=== PATIENT | male | born 1935 | race Two or more races ===

== ENCOUNTER 2016-11-20 07:48 | Inpatient (IN) | payer OTHER, MEDICAID ==
[~2016-11-20] VITALS: Ht 157.5 cm; Wt 73.2 kg
[~2016-11-20 07:48] MED LIST: ASPI-231 PO; CANA100T OR; CARV6.2551 PO; DOCU1CAP PO; FER325T PO; FURO40TA4 PO; GABA300C8 PO; INSR100KIT SC; INSUINJ37 SUBCUT; LOVA40TA72 PO; SITA50TA PO
[2016-11-20 08:30] LABS: Basophils # (auto) 0.1 uL; Basophils % (auto) 0.5 % (0.0-2.0); Eosinophils # (auto) 0.3 uL; Eosinophils % (auto) 2.3 % (0.0-7.0); Hematocrit 29.7 % (41.0-53.0); Hemoglobin 9.6 g/dL (13.5-17.5); Lymphocytes # (auto) 3.5 uL; Mean Corpuscular Hemoglobin 30.2 pg (28.0-32.0); Mean Corpuscular Hgb Conc. 32.2 g/dL (32.0-36.0); Mean Corpuscular Volume 93.8 fL (80.0-100.0); Mean Platelet Volume 9.1 fL (7.4-10.4); Monocytes # (auto) 0.7 uL; Monocytes % (auto) 6.2 % (0.0-12.0); Platelet Count (auto) 221 10^3/uL (140-450); Red Cell Distribution Width 15.8 % (11.6-16.0); White Blood Cell 11.5 10^3/uL (4.4-10.8)
[2016-11-20 08:59] LABS: Albumin 2.8 g/dL (3.4-5.0); BUN/Creatinine Ratio 18.1; Bilirubin, Total 0.6 mg/dL (0.2-1.0); Calcium 8.1 mg/dL (8.5-10.1); Potassium 5.1 mmol/L (3.5-5.1); Total Protein 6.6 g/dL (6.4-8.2)
[2016-11-20] MEDS ORDERED: PANTOPRAZOLE SODIUM 40 MG/10 ML VIAL IV STA (09:27)
[2016-11-20] MEDS ORDERED: SODIUM CHLORIDE 0.9% 1,000 ML IV ONE (09:30)
[2016-11-20 10:01] LABS: B-Type Natriuretic Peptide 1060.97 pg/mL (0-100)
[2016-11-20 10:39] LABS: Partial Thromboplastin Time 26.4 sec (22.64-33.71)
[2016-11-20 10:41] LABS: INR 1.23 (0.9-1.15); Prothrombin Time 12.7 sec (9.37-12.3)
[2016-11-20] MEDS ORDERED: MORPHINE SULF INJ 2 MG/ML SYRINGE 1ML IV PRN (12:15)
[2016-11-20] MEDS ORDERED: NITROGLYCERIN 0.4 MG SL TAB SL PRN (12:15)
[2016-11-20] MEDS ORDERED: PHYTONADIONE (VIT K)10 MG/ML 1ML VIAL SUBCUT ONE (12:15)
[2016-11-20] MEDS ORDERED: PROMETHAZINE HCL 25 MG/ML 1ML IV PRN (12:15)
[2016-11-20] MEDS: NOREPINEPHRINE BITARTRATE 250 ML IV SCH (12:15)
[2016-11-20] MEDS ORDERED: LORazepam 2MG/ML-1ML VIAL IV PRN (12:15)
[2016-11-20] MEDS ORDERED: DEXTROSE (50%) 50ML SYRG IV PRN (12:15)
[2016-11-20 12:31] LABS: Amylase 31 U/L (25-115)
[2016-11-20] MEDS: LEVOFLOXACIN 500MG 100 ML IV SCH (15:13)
[2016-11-20] MEDS: metroNIDAZOLE 500MG/100ML 100 ML IV SCH ×2 (15:59→22:21)
[2016-11-20] MEDS: SODIUM CHLORIDE 0.9% 1,000 ML IV SCH ×2 (15:59→19:38)
[2016-11-20] MEDS: ACCU-CHEK COMFORT CURVE STRIP VI SCH (18:18)
[2016-11-20] MEDS: InsuLIN REG 1unit/0.01ml Soln (100units/ml) SC SCH (18:21)
[2016-11-20 18:35] LABS: Hematocrit 24.3 % (41.0-53.0); Hemoglobin 7.8 g/dL (13.5-17.5)
[2016-11-20] MEDS: PANTOPRAZOLE SODIUM 80 MG in SODIUM CHL 0.9% 60 ML IV SCH (19:06)
[2016-11-20 21:20] VITALS: BP 97/59
[2016-11-20 21:35] VITALS: BP 94/55
[2016-11-20 21:50] VITALS: BP 119/58
[2016-11-20 22:32] VITALS: BP 95/36
[2016-11-20 23:13] VITALS: BP 109/66
[2016-11-21] VITALS (11 sets, daily range): BP systolic 92–126; BP diastolic 68–78
[2016-11-21] MEDS: ACCU-CHEK COMFORT CURVE STRIP VI SCH ×5 (00:02→23:57)
[2016-11-21] MEDS: InsuLIN REG 1unit/0.01ml Soln (100units/ml) SC SCH ×5 (00:09→23:56)
[2016-11-21 01:01] LABS: Hematocrit 30.8 % (41.0-53.0); Hemoglobin 9.8 g/dL (13.5-17.5)
[2016-11-21] MEDS: PANTOPRAZOLE SODIUM 80 MG in SODIUM CHL 0.9% 60 ML IV SCH (03:45)
[2016-11-21] MEDS: SODIUM CHLORIDE 0.9% 1,000 ML IV SCH (04:29)
[2016-11-21] MEDS: metroNIDAZOLE 500MG/100ML 100 ML IV SCH ×3 (05:04→20:58)
[2016-11-21 05:32] LABS: Basophils # (auto) 0 uL; Basophils % (auto) 0.3 % (0.0-2.0); Eosinophils # (auto) 0 uL; Hemoglobin 10.4 g/dL (13.5-17.5); Lymphocytes % (auto) 17.5 % (10.0-50.0); Mean Corpuscular Hgb Conc. 31.6 g/dL (32.0-36.0); Mean Corpuscular Volume 91.8 fL (80.0-100.0); Mean Platelet Volume 9.2 fL (7.4-10.4); Monocytes # (auto) 0.8 uL; Monocytes % (auto) 6.9 % (0.0-12.0); Neutrophils # (auto) 8.5 uL; Neutrophils % (auto) 75.3 % (37.0-80.0); Platelet Count (auto) 188 10^3/uL (140-450); Red Cell Distribution Width 15.1 % (11.6-16.0); White Blood Cell 11.3 10^3/uL (4.4-10.8)
[2016-11-21 06:02] LABS: Albumin 2.9 g/dL (3.4-5.0); BUN/Creatinine Ratio 28.4; Bilirubin, Total 0.6 mg/dL (0.2-1.0); Calcium 7.9 mg/dL (8.5-10.1); Potassium 4.6 mmol/L (3.5-5.1); Total Protein 6.6 g/dL (6.4-8.2)
[2016-11-21 06:21] LABS: B-Type Natriuretic Peptide 1373.65 pg/mL (0-100); Temperature: 22.3 C (20.0-25.0)
[2016-11-21] MEDS: MORPHINE SULF INJ 2 MG/ML SYRINGE 1ML IV PRN (06:36)
[2016-11-21] MEDS: LEVOFLOXACIN 500MG 100 ML IV SCH (09:34)
[2016-11-21] MEDS ORDERED: PANTOPRAZOLE SODIUM 40 MG/10 ML VIAL IV SCH (10:00)
[2016-11-21] MEDS: NOREPINEPHRINE BITARTRATE 250 ML IV SCH (12:15)
[2016-11-21] MEDS ORDERED: LIDOCAINE VISCOUS 2% 15ML UD ONE (12:27)
[2016-11-21] MEDS ORDERED: SODIUM CHLORIDE LOCK 10 ML ONE (12:27)
[2016-11-21] MEDS ORDERED: fentaNYL CITRATE 100 MCG/2 ML VL ONE (12:28)
[2016-11-21] MEDS ORDERED: MIDAZOLAM HCL 5 MG/ML-1ML VIAL ONE (12:28)
[2016-11-21] MEDS ORDERED: diphenhdrAMINE HCL 50 MG/1 ML VL ONE (12:28)
[2016-11-21 12:55] LABS: Urine Bilirubin Negative (Negative); Urine Blood Negative /uL (Negative); Urine Color Yellow (Yellow); Urine Glucose Normal (Normal); Urine Hyaline Cast MANY /lpf (0 - 2); Urine Nitrite Negative (Negative); Urine RBC <1 /hpf (0 - 3); Urine Urobilinogen Normal (Negative)
[2016-11-21 12:56] LABS: Urine Ketone 1+ (Negative)
[2016-11-21] MEDS: FUROSEMIDE 40 MG/4 ML VIAL IV SCH (16:19)
[2016-11-21] MEDS: SUCRALFATE 1 GM/10 ML ORAL SUSP GT SCH ×2 (17:40→20:58)
[2016-11-21] MEDS: PANTOPRAZOLE SODIUM 40 MG/10 ML VIAL IV SCH (21:04)
[2016-11-22 03:51] VITALS: BP 123/79
[2016-11-22] MEDS: InsuLIN REG 1unit/0.01ml Soln (100units/ml) SC SCH ×3 (06:00→17:58)
[2016-11-22 06:04] LABS: Basophils # (auto) 0 uL; Basophils % (auto) 0.3 % (0.0-2.0); Eosinophils # (auto) 0 uL; Hematocrit 32.4 % (41.0-53.0); Hemoglobin 10.1 g/dL (13.5-17.5); Lymphocytes # (auto) 1.7 uL; Lymphocytes % (auto) 16.6 % (10.0-50.0); Mean Corpuscular Hemoglobin 29.2 pg (28.0-32.0); Mean Corpuscular Hgb Conc. 31.1 g/dL (32.0-36.0); Mean Corpuscular Volume 93.7 fL (80.0-100.0); Mean Platelet Volume 9.6 fL (7.4-10.4); Monocytes % (auto) 9.9 % (0.0-12.0); Neutrophils # (auto) 7.5 uL; Neutrophils % (auto) 73.2 % (37.0-80.0); Platelet Count (auto) 169 10^3/uL (140-450); Red Cell Distribution Width 15.5 % (11.6-16.0); White Blood Cell 10.2 10^3/uL (4.4-10.8)
[2016-11-22 06:55] LABS: BUN/Creatinine Ratio 29.2; Calcium 8.1 mg/dL (8.5-10.1); Magnesium 2.3 mg/dL (1.6-2.6); Potassium 4.3 mmol/L (3.5-5.1)
[2016-11-22] MEDS: ACCU-CHEK COMFORT CURVE STRIP VI SCH ×3 (06:56→17:50)
[2016-11-22] MEDS: metroNIDAZOLE 500MG/100ML 100 ML IV SCH ×3 (06:56→21:21)
[2016-11-22] MEDS: SUCRALFATE 1 GM/10 ML ORAL SUSP GT SCH ×4 (06:56→21:21)
[2016-11-22] MEDS: MORPHINE SULF INJ 2 MG/ML SYRINGE 1ML IV PRN (07:21)
[2016-11-22 07:57] VITALS: BP 138/88
[2016-11-22] MEDS: FUROSEMIDE 40 MG/4 ML VIAL IV SCH ×2 (10:11→17:59)
[2016-11-22] MEDS: LEVOFLOXACIN 250MG 50 ML IV SCH (10:11)
[2016-11-22] MEDS: PANTOPRAZOLE SODIUM 40 MG/10 ML VIAL IV SCH ×2 (10:11→21:21)
[2016-11-22 12:00] VITALS: BP 120/70
[2016-11-22] MEDS: ASPirin 81 mg TAB PO SCH (12:00)
[2016-11-22] MEDS: NOREPINEPHRINE BITARTRATE 250 ML IV SCH (12:00)
[2016-11-22 15:54] VITALS: BP 118/73
[2016-11-22 20:00] VITALS: BP 102/70
[2016-11-22] MEDS ORDERED: ATORVASTATIN 20 MG TAB PO SCH (22:00)
[2016-11-23] VITALS: BP 109/69
[2016-11-23] MEDS: MORPHINE SULF INJ 2 MG/ML SYRINGE 1ML IV PRN (02:36)
[2016-11-23 04:00] VITALS: BP 110/71
[2016-11-23] MEDS: InsuLIN REG 1unit/0.01ml Soln (100units/ml) SC SCH ×4 (06:00→18:24)
[2016-11-23 06:02] LABS: Basophils # (auto) 0 uL; Basophils % (auto) 0.3 % (0.0-2.0); Eosinophils # (auto) 0 uL; Eosinophils % (auto) 0.2 % (0.0-7.0); Hematocrit 29.9 % (41.0-53.0); Hemoglobin 9.5 g/dL (13.5-17.5); Lymphocytes # (auto) 2.3 uL; Mean Corpuscular Hemoglobin 29.6 pg (28.0-32.0); Mean Corpuscular Hgb Conc. 31.8 g/dL (32.0-36.0); Mean Corpuscular Volume 93.1 fL (80.0-100.0); Mean Platelet Volume 9.6 fL (7.4-10.4); Monocytes # (auto) 1.1 uL; Monocytes % (auto) 10.7 % (0.0-12.0); Neutrophils # (auto) 6.6 uL; Neutrophils % (auto) 65.8 % (37.0-80.0); Platelet Count (auto) 141 10^3/uL (140-450); Red Cell Distribution Width 15.4 % (11.6-16.0)
[2016-11-23] MEDS: metroNIDAZOLE 500MG/100ML 100 ML IV SCH ×2 (06:05→14:00)
[2016-11-23] MEDS: ACCU-CHEK COMFORT CURVE STRIP VI SCH ×4 (06:07→17:49)
[2016-11-23] MEDS: FUROSEMIDE 40 MG/4 ML VIAL IV SCH ×2 (06:07→18:00)
[2016-11-23] MEDS: SUCRALFATE 1 GM/10 ML ORAL SUSP GT SCH ×3 (06:08→17:49)
[2016-11-23 06:38] LABS: BUN/Creatinine Ratio 31.6; Magnesium 2.1 mg/dL (1.6-2.6); Phosphorus 1.5 mg/dL (2.5-4.90); Potassium 3.4 mmol/L (3.5-5.1)
[2016-11-23 08:00] VITALS: BP 137/78
[2016-11-23] MEDS ORDERED: ASPirin 81 mg TAB PO SCH (10:00)
[2016-11-23] MEDS: PANTOPRAZOLE SODIUM 40 MG/10 ML VIAL IV SCH (10:16)
[2016-11-23] MEDS: LEVOFLOXACIN 250MG 50 ML IV SCH (10:16)
[2016-11-23] MEDS: ASPirin 81 mg TAB PO SCH (10:16)
[2016-11-23 11:51] VITALS: BP 120/73
[2016-11-23] MEDS ORDERED: CARVEDILOL 3.125 MG TAB PO ONE (12:45)
[2016-11-23] MEDS: NEUTRA-PHOS TABLET PO SCH ×2 (15:51→17:49)
[2016-11-23 16:00] VITALS: BP 111/59
[2016-11-23] MEDS ORDERED: IOHEXOL 350 MG/ML 100ML IJ ONE ×2 (16:52→17:15)
[2016-11-23 18:51] VITALS: BP 111/59
[2016-11-23] MEDS ORDERED: CARVEDILOL 3.125 MG TAB PO SCH (22:00)
== END 2016-11-23 18:42 | disposition home health service (06) | DRG 377 ==
LOC: ER 07:48 → TELE 07:49 → DOU IN ICU 21:47
PROVIDERS: ADMIT Internal Medicine; ATTEND Internal Medicine
PROC: 0DB68ZX Excision of Stomach, Via Natural or Artificial Opening Endoscopic, Diagnostic (ICD-10-PCS; principal; 2016-11-20)
PROC: 30233N1 Transfusion of Nonautologous Red Blood Cells into Peripheral Vein, Percutaneous Approach (ICD-10-PCS; 2016-11-20)
DX: K27.4 Chronic or unspecified peptic ulcer, site unspecified, with hemorrhage (principal); I21.4 Non-ST elevation (NSTEMI) myocardial infarction; I50.23 Acute on chronic systolic (congestive) heart failure; K92.0 Hematemesis; I11.0 Hypertensive heart disease with heart failure; E78.5 Hyperlipidemia, unspecified; I25.10 Atherosclerotic heart disease of native coronary artery without angina pectoris; K20.9 Esophagitis, unspecified; K40.90 Unilateral inguinal hernia, without obstruction or gangrene, not specified as recurrent; Z86.73 Personal history of transient ischemic attack (TIA), and cerebral infarction without residual deficits; E11.51 Type 2 diabetes mellitus with diabetic peripheral angiopathy without gangrene; Z95.1 Presence of aortocoronary bypass graft; Z89.512 Acquired absence of left leg below knee; Z95.810 Presence of automatic (implantable) cardiac defibrillator; Z88.0 Allergy status to penicillin; Z79.4 Long term (current) use of insulin; Z79.82 Long term (current) use of aspirin
CPT/HCPCS: 36415; 36430; 71010; 73502; 74176; 75635; 80048; 80053; 80061; 81001; 82150; 82378; 82550; 82962; 83036; 83690; 83735; 83880; 84100; 84443; 84484; 85014; 85018; 85025; 85045; 85610; 85652; 85730; 86141; 86850; 86900; 86901; 86920; 87081; 87086; 93005; 96361; 96372; 96374; 99291; C9113; J1815; J1956; J2250; J3430; J3490

== ENCOUNTER 2018-06-16 18:28 | Inpatient (IN) | payer OTHER, MEDICAID ==
[~2018-06-16] VITALS: Ht 165.1 cm; Wt 78.4 kg
[~2018-06-16 18:28] MED LIST changes: -DOCU1CAP PO; +DOCU50CA5 PO; +GABA300C10 PO; -GABA300C8 PO
[2018-06-16 19:14] LABS: Basophils # (auto) 0.1 uL; Basophils % (auto) 0.7 % (0.0-2.0); Eosinophils # (auto) 0.1 uL; Eosinophils % (auto) 0.7 % (0.0-7.0); Hematocrit 30.3 % (41.0-53.0); Hemoglobin 10.3 g/dL (13.5-17.5); Lymphocytes % (auto) 18.3 % (10.0-50.0); Mean Corpuscular Hemoglobin 33.2 pg (28.0-32.0); Mean Corpuscular Volume 97.7 fL (80.0-100.0); Monocytes # (auto) 0.4 uL; Monocytes % (auto) 3.8 % (0.0-12.0); Neutrophils # (auto) 8.2 uL; Neutrophils % (auto) 76.5 % (37.0-80.0); Platelet Count (auto) 178 10^3/uL (140-450); Red Cell Distribution Width 13.8 % (11.8-14.3); White Blood Cell 10.8 10^3/uL (4.4-10.8)
[2018-06-16 19:34] LABS: BUN/Creatinine Ratio 31.6; Bilirubin, Total 0.4 mg/dL (0.2-1.0); Calcium 7.7 mg/dL (8.5-10.1); Total Protein 6.6 g/dL (6.4-8.2)
[2018-06-16 19:39] LABS: Potassium 6.5 mmol/L (3.5-5.1)
[2018-06-16] MEDS ORDERED: SODIUM CHLORIDE 0.9% 1,000 ML IVB ONE (21:08)
[2018-06-16] MEDS ORDERED: PANTOPRAZOLE 40 MG/10 ML VIAL IV ONE (21:15)
[2018-06-16 21:34] LABS: INR 1.09 (0.9-1.15); Partial Thromboplastin Time 24.2 sec (23.78-33.04); Prothrombin Time 11.6 sec (9.27-12.13)
[2018-06-16 21:37] LABS: Magnesium 2.5 mg/dL (1.6-2.6)
[2018-06-16] MEDS ORDERED: InsuLIN REG 1unit/0.01ml Soln (100units/ml) IV ONE (21:45)
[2018-06-16] MEDS ORDERED: ACETAMINOPHEN 325 MG TAB PO PRN (22:45)
[2018-06-16] MEDS ORDERED: SODIUM POLYSTYRENE SULF 15GM/60ML SUSP PO ONE (22:45)
[2018-06-16] MEDS ORDERED: MORPHINE SULF INJ 2 MG/ML SYRINGE 1ML IV PRN (22:45)
[2018-06-16] MEDS ORDERED: DEXTROSE (50%) 50ML SYRG IV PRN (22:45)
[2018-06-16] MEDS ORDERED: ONDANSETRON HCL 4 MG/2 ML VIAL IV PRN (22:45)
[2018-06-16] MEDS ORDERED: NITROGLYCERIN 0.4 MG SL TAB SL PRN (22:45)
[2018-06-16] MEDS ORDERED: CALCIUM GLUC 4.65meq/50ml D5AE 50 ML IV ONE (22:45)
[2018-06-16 23:30] VITALS: BP 128/66
[2018-06-17] VITALS (7 sets, daily range): BP systolic 97–129; BP diastolic 52–69
[2018-06-17] MEDS: ACCU-CHEK COMFORT CURVE STRIP VI SCH ×5 (00:18→23:39)
[2018-06-17] MEDS: InsuLIN REG 1unit/0.01ml Soln (100units/ml) SC SCH ×5 (00:18→23:45)
[2018-06-17 00:25] LABS: Urine WBC None Seen /hpf (0 - 3)
[2018-06-17] MEDS ORDERED: CLOP75TA28 PO (00:40)
[2018-06-17] MEDS ORDERED: CARV6.25 PO (00:40)
[2018-06-17] MEDS ORDERED: GABA-339 PO (00:40)
[2018-06-17] MEDS ORDERED: ENAL5TAB85 PO (00:40)
[2018-06-17 00:45] LABS: Urine Bacteria NONE SEEN /hpf (None Seen); Urine Blood Negative /uL (Negative); Urine Hyaline Cast MANY /lpf (0 - 2); Urine Specific Gravity 1.017 (1.001-1.035)
[2018-06-17 01:08] LABS: Hematocrit 25.4 % (41.0-53.0); Hemoglobin 8.5 g/dL (13.5-17.5)
[2018-06-17 06:27] LABS: Basophils # (auto) 0 uL; Basophils % (auto) 0.3 % (0.0-2.0); Eosinophils # (auto) 0 uL; Eosinophils % (auto) 0.2 % (0.0-7.0); Hematocrit 25.1 % (41.0-53.0); Hemoglobin 8.8 g/dL (13.5-17.5); Lymphocytes # (auto) 2.1 uL; Lymphocytes % (auto) 22.4 % (10.0-50.0); Mean Corpuscular Hemoglobin 33.5 pg (28.0-32.0); Mean Corpuscular Hgb Conc. 34.9 g/dL (32.0-36.0); Monocytes # (auto) 0.8 uL; Monocytes % (auto) 8.7 % (0.0-12.0); Neutrophils # (auto) 6.4 uL; Neutrophils % (auto) 68.4 % (37.0-80.0); Platelet Count (auto) 133 10^3/uL (140-450); Red Blood Cells 2.61 10^6/uL (4.5-5.90); Red Cell Distribution Width 13.8 % (11.8-14.3); White Blood Cell 9.3 10^3/uL (4.4-10.8)
[2018-06-17 07:08] LABS: BUN/Creatinine Ratio 46.9; Bilirubin, Total 0.4 mg/dL (0.2-1.0); Calcium 7.8 mg/dL (8.5-10.1); Potassium 4.5 mmol/L (3.5-5.1); Total Protein 6.5 g/dL (6.4-8.2)
[2018-06-17] MEDS ORDERED: ENALAPRIL MALEATE 2.5 MG TAB PO SCH (10:00)
[2018-06-17] MEDS ORDERED: FUROSEMIDE 20 MG TAB PO SCH (10:00)
[2018-06-17] MEDS: PANTOPRAZOLE 40 MG/10 ML VIAL IV SCH ×2 (10:20→21:53)
[2018-06-17] MEDS: CARVEDILOL 3.125 MG TAB PO SCH ×2 (10:21→21:54)
[2018-06-17] MEDS: SODIUM CHLORIDE 0.9% 1,000 ML IV SCH (12:30)
[2018-06-17] MEDS: PRAVASTATIN SODIUM 20 MG TAB PO SCH (21:53)
[2018-06-18 05:00] VITALS: BP 102/67
[2018-06-18] MEDS: ACCU-CHEK COMFORT CURVE STRIP VI SCH ×4 (05:49→23:43)
[2018-06-18] MEDS: InsuLIN REG 1unit/0.01ml Soln (100units/ml) SC SCH ×4 (05:49→23:43)
[2018-06-18] MEDS: SODIUM CHLORIDE 0.9% 1,000 ML IV SCH ×2 (06:17→19:50)
[2018-06-18] MEDS ORDERED: SODIUM CHLORIDE LOCK 10 ML ONE (08:21)
[2018-06-18] MEDS ORDERED: LIDOCAINE VISCOUS 2% 15ML UD ONE (08:21)
[2018-06-18] MEDS ORDERED: MIDAZOLAM HCL 5 MG/ML-1ML VIAL ONE (08:22)
[2018-06-18] MEDS ORDERED: fentaNYL CITRATE 100 MCG/2 ML VL ONE (08:22)
[2018-06-18 09:00] VITALS: BP 122/61
[2018-06-18] MEDS: ENALAPRIL MALEATE 2.5 MG TAB PO SCH (10:00)
[2018-06-18] MEDS: PANTOPRAZOLE 40 MG/10 ML VIAL IV SCH (10:00)
[2018-06-18] MEDS: CARVEDILOL 3.125 MG TAB PO SCH ×2 (10:00→21:32)
[2018-06-18 12:55] VITALS: BP 115/65
[2018-06-18 16:16] VITALS: BP 117/70
[2018-06-18] MEDS: PRAVASTATIN SODIUM 20 MG TAB PO SCH (21:31)
[2018-06-18] MEDS: PANTOPRAZOLE 40 MG TAB PO SCH (21:32)
[2018-06-18 21:51] VITALS: BP 116/57
[2018-06-19] VITALS (8 sets, daily range): BP systolic 109–125; BP diastolic 62–69
[2018-06-19 05:24] LABS: Basophils # (auto) 0 uL; Eosinophils # (auto) 0.1 uL; Hemoglobin 7.9 g/dL (13.5-17.5); Lymphocytes # (auto) 1.7 uL; Monocytes # (auto) 0.7 uL; Neutrophils # (auto) 5.3 uL; Nucleated Red Blood Cells % 0.1 %; White Blood Cell 7.8 10^3/uL (4.4-10.8)
[2018-06-19 05:27] LABS: Basophils % (auto) 0.6 % (0.0-2.0); Hematocrit 23.1 % (41.0-53.0); Lymphocytes % (auto) 21.8 % (10.0-50.0); Mean Corpuscular Hemoglobin 33.2 pg (28.0-32.0); Mean Corpuscular Hgb Conc. 34.1 g/dL (32.0-36.0); Mean Corpuscular Volume 97.3 fL (80.0-100.0); Monocytes % (auto) 8.4 % (0.0-12.0); Neutrophils % (auto) 68.2 % (37.0-80.0); Platelet Count (auto) 140 10^3/uL (140-450); Red Blood Cells 2.37 10^6/uL (4.5-5.90); Red Cell Distribution Width 13.8 % (11.8-14.3)
[2018-06-19 05:41] LABS: BUN/Creatinine Ratio 34.8; Calcium 7.7 mg/dL (8.5-10.1); Magnesium 2.5 mg/dL (1.6-2.6); Potassium 3.1 mmol/L (3.5-5.1)
[2018-06-19] MEDS: ACCU-CHEK COMFORT CURVE STRIP VI SCH ×3 (05:48→18:00)
[2018-06-19] MEDS: InsuLIN REG 1unit/0.01ml Soln (100units/ml) SC SCH ×3 (05:48→17:36)
[2018-06-19] MEDS: PANTOPRAZOLE 40 MG TAB PO SCH (10:10)
[2018-06-19] MEDS: CARVEDILOL 3.125 MG TAB PO SCH (10:10)
[2018-06-19] MEDS: ENALAPRIL MALEATE 2.5 MG TAB PO SCH (10:10)
[2018-06-19] MEDS ORDERED: POTASSIUM CHL 20 Meq TABLET PO ONE (11:15)
[2018-06-20] MEDS ORDERED: CLOP75TA41 PO (18:19)
[2018-06-20] MEDS ORDERED: CARV6.25 PO (18:19)
[2018-06-20] MEDS ORDERED: ASPI81CH43 PO (18:19)
[2018-06-20] MEDS ORDERED: INSLANTI SC ×2 (18:19)
[2018-06-20] MEDS ORDERED: ALBUAER3 IN (18:19)
== END 2018-06-19 19:30 | disposition home health service (06) | DRG 377 ==
LOC: ER 18:28 → TELE 18:29 → TELE-WESTW 23:33
PROVIDERS: ADMIT Nurse Practitioner; ATTEND Internal Medicine
PROC: 0DB68ZX Excision of Stomach, Via Natural or Artificial Opening Endoscopic, Diagnostic (ICD-10-PCS; principal; 2018-06-18 13:22)
PROC: 30233N1 Transfusion of Nonautologous Red Blood Cells into Peripheral Vein, Percutaneous Approach (ICD-10-PCS; 2018-06-19)
DX: K29.71 Gastritis, unspecified, with bleeding (principal); N17.0 Acute kidney failure with tubular necrosis; I13.0 Hypertensive heart and chronic kidney disease with heart failure and stage 1 through stage 4 chronic kidney disease, or unspecified chronic kidney disease; E11.51 Type 2 diabetes mellitus with diabetic peripheral angiopathy without gangrene; E11.22 Type 2 diabetes mellitus with diabetic chronic kidney disease; D50.0 Iron deficiency anemia secondary to blood loss (chronic); E78.5 Hyperlipidemia, unspecified; E87.5 Hyperkalemia; I25.10 Atherosclerotic heart disease of native coronary artery without angina pectoris; R79.89 Other specified abnormal findings of blood chemistry; I25.5 Ischemic cardiomyopathy; I50.9 Heart failure, unspecified; K25.4 Chronic or unspecified gastric ulcer with hemorrhage; K44.9 Diaphragmatic hernia without obstruction or gangrene; N18.9 Chronic kidney disease, unspecified; Z79.02 Long term (current) use of antithrombotics/antiplatelets; I25.2 Old myocardial infarction; Z79.4 Long term (current) use of insulin; Z79.82 Long term (current) use of aspirin; Z86.73 Personal history of transient ischemic attack (TIA), and cerebral infarction without residual deficits; Z87.11 Personal history of peptic ulcer disease; Z89.511 Acquired absence of right leg below knee; Z89.512 Acquired absence of left leg below knee; Z95.1 Presence of aortocoronary bypass graft; Z95.810 Presence of automatic (implantable) cardiac defibrillator; Z88.0 Allergy status to penicillin
CPT/HCPCS: 36415; 43239; 71045; 74176; 80048; 80053; 81001; 82150; 82962; 83036; 83690; 83735; 83880; 84484; 85014; 85018; 85025; 85379; 85610; 85730; 86850; 86900; 86901; 86920; 93005; 94761; 96374; 96375; A6257; C9113; J0610; J1815; J2250

== ENCOUNTER 2018-06-20 03:09 | Inpatient (IN) | payer OTHER, MEDICAID ==
[~2018-06-20] VITALS: Ht 165.1 cm; Wt 79.9 kg
[2018-06-20] VITALS (30 sets, daily range): BP systolic 90–116; BP diastolic 48–73
[~2018-06-20 03:09] MED LIST changes: -ASPI-231 PO; -CANA100T OR; +CARV6.25 PO; -CARV6.2551 PO; -DOCU50CA5 PO; +ENAL5TAB85 PO; -FER325T PO; +GABA-339 PO; -GABA300C10 PO; -INSR100KIT SC; -INSUINJ37 SUBCUT; -SITA50TA PO
[2018-06-20 04:00] LABS: Basophils # (auto) 0 uL; Basophils % (auto) 0.3 % (0.0-2.0); Eosinophils # (auto) 0 uL; Hematocrit 29.1 % (41.0-53.0); Hemoglobin 9.9 g/dL (13.5-17.5); Lymphocytes # (auto) 1.3 uL; Mean Corpuscular Hemoglobin 32.4 pg (28.0-32.0); Mean Corpuscular Hgb Conc. 33.9 g/dL (32.0-36.0); Mean Corpuscular Volume 95.6 fL (80.0-100.0); Monocytes # (auto) 0.7 uL; Monocytes % (auto) 5.8 % (0.0-12.0); Neutrophils # (auto) 10.8 uL; Neutrophils % (auto) 83.9 % (37.0-80.0); Nucleated Red Blood Cells % 0.2 %; Platelet Count (auto) 149 10^3/uL (140-450); Red Blood Cells 3.04 10^6/uL (4.5-5.90); Red Cell Distribution Width 14.6 % (11.8-14.3); White Blood Cell 12.9 10^3/uL (4.4-10.8)
[2018-06-20 04:12] LABS: INR 1.11 (0.9-1.15); Partial Thromboplastin Time 22.2 sec (23.78-33.04); Prothrombin Time 11.8 sec (9.27-12.13)
[2018-06-20 04:14] LABS: Albumin 3.2 g/dL (3.4-5.0); BUN/Creatinine Ratio 23.9; Calcium 8.1 mg/dL (8.5-10.1); Magnesium 2.3 mg/dL (1.6-2.6)
[2018-06-20] MEDS ORDERED: methylPREDNISolone SOD SUCC 125 MG/2 ML VL IV ONE (04:30)
[2018-06-20 04:32] LABS: Bilirubin, Total 0.8 mg/dL (0.2-1.0)
[2018-06-20] MEDS ORDERED: HEPARIN DRIP/D5W 100UNITS/ML 250 ML IV SCH (05:18)
[2018-06-20] MEDS ORDERED: HEPARIN SODIUM (PORCINE) 5000 UNITS/ML 1ML VIAL IV ONE (05:30)
[2018-06-20] MEDS ORDERED: HEPARIN DRIP/D5W 100UNITS/ML 250 ML IV ONE (05:30)
[2018-06-20] MEDS ORDERED: MORPHINE SULFATE 4 MG/ML SYR/VIAL IV ONE (05:45)
[2018-06-20] MEDS ORDERED: InsuLIN REG 1unit/0.01ml Soln (100units/ml) IV ONE (09:00)
[2018-06-20] MEDS ORDERED: HYDROcodone-ACET 5/325MG TAB PO PRN (09:45)
[2018-06-20] MEDS ORDERED: MORPHINE SULF INJ 2 MG/ML SYRINGE 1ML IV PRN ×2 (09:45)
[2018-06-20] MEDS ORDERED: TEMAZEPAM 15 MG CAP PO PRN (09:45)
[2018-06-20] MEDS ORDERED: VANCOMYCIN PER PHARMACY 0 MG IV SCH (09:45)
[2018-06-20] MEDS ORDERED: ONDANSETRON HCL 4 MG/2 ML VIAL IV PRN (09:45)
[2018-06-20] MEDS ORDERED: DOCUSATE SOD 100 MG CAP PO PRN (09:45)
[2018-06-20] MEDS ORDERED: ACETAMINOPHEN 325 MG TAB PO PRN (09:45)
[2018-06-20] MEDS ORDERED: NITROGLYCERIN 0.4 MG SL TAB SL PRN (09:45)
[2018-06-20] MEDS ORDERED: DEXTROSE (50%) 50ML SYRG IV PRN (09:45)
[2018-06-20] MEDS ORDERED: LEVOFLOXACIN 500MG 100 ML IV ONE (09:45)
[2018-06-20] MEDS ORDERED: INSULIN LANTUS (GLARGINE) 1 /0.01ml (100units/ml) SC ONE (09:45)
[2018-06-20] MEDS ORDERED: FAMOTIDINE 20 MG TAB PO SCH (10:00)
[2018-06-20] MEDS: MULTIPLE VITAMIN TAB PO SCH (10:00)
[2018-06-20] MEDS ORDERED: PANTOPRAZOLE 40 MG TAB PO ONE (10:15)
[2018-06-20] MEDS ORDERED: IOHEXOL 350 MG/ML 100ML IJ ONE (10:18)
[2018-06-20] MEDS: GABAPENTIN 300 MG CAP PO SCH ×2 (10:30→22:34)
[2018-06-20] MEDS: ENALAPRIL MALEATE 2.5 MG TAB PO SCH ×2 (10:30→22:41)
[2018-06-20] MEDS: CARVEDILOL 3.125 MG TAB PO SCH ×2 (10:30→22:42)
[2018-06-20] MEDS: ASPirin-EC 81 mg tab PO SCH (10:30)
[2018-06-20] MEDS: ALBUTEROL SULF 2.5 MG/0.5ML(0.5%) NEB SOLN NEB SCH ×2 (12:05→19:22)
[2018-06-20] MEDS: IPRATROPIUM BROM 0.5 MG/2.5ML INH SOL NEB SCH ×2 (12:05→19:22)
[2018-06-20] MEDS: POTASSIUM CHL 10 Meq TABLET PO SCH (12:14)
[2018-06-20] MEDS: ACCU-CHEK COMFORT CURVE STRIP VI SCH ×3 (12:16→22:35)
[2018-06-20] MEDS: InsuLIN REG 1unit/0.01ml Soln (100units/ml) SC SCH ×3 (12:24→22:48)
[2018-06-20] MEDS: FUROSEMIDE 40 MG/4 ML VIAL IV SCH (12:40)
[2018-06-20] MEDS: VANCOMYCIN 1GM/250ML 250 ML IV SCH (13:55)
[2018-06-20] MEDS: SODIUM CHLOR 0.9% PF (SALINE LOCK) 10ML VIAL/SYR IV SCH ×2 (14:00→22:35)
[2018-06-20 17:13] LABS: Hematocrit 25.8 % (41.0-53.0); Hemoglobin 8.6 g/dL (13.5-17.5)
[2018-06-20] MEDS ORDERED: CARV6.25 PO (18:19)
[2018-06-20] MEDS ORDERED: ASPI81CH43 PO (18:19)
[2018-06-20] MEDS ORDERED: CLOP75TA41 PO (18:19)
[2018-06-20] MEDS ORDERED: ALBUAER3 IN (18:19)
[2018-06-20] MEDS ORDERED: INSLANTI SC ×2 (18:19)
[2018-06-20] MEDS ORDERED: ALBUTEROL SULF 2.5 MG/0.5ML(0.5%) NEB SOLN NEB PRN (18:30)
[2018-06-20 19:14] LABS: Hematocrit 25.8 % (41.0-53.0); Hemoglobin 8.7 g/dL (13.5-17.5)
[2018-06-20 19:57] LABS: Urine Bacteria NONE SEEN /hpf (None Seen); Urine Blood Negative /uL (Negative); Urine Hyaline Cast FEW /lpf (0 - 2); Urine Specific Gravity 1.025 (1.001-1.035); Urine WBC 1 /hpf (0 - 3)
[2018-06-20] MEDS: ATORVASTATIN 20 MG TAB PO SCH (22:34)
[2018-06-20 23:31] LABS: Hematocrit 25.7 % (41.0-53.0); Hemoglobin 8.5 g/dL (13.5-17.5)
[2018-06-21] VITALS (72 sets, daily range): BP systolic 90–110; BP diastolic 48–64
[2018-06-21] MEDS: ALBUTEROL SULF 2.5 MG/0.5ML(0.5%) NEB SOLN NEB SCH ×4 (00:02→18:53)
[2018-06-21] MEDS: IPRATROPIUM BROM 0.5 MG/2.5ML INH SOL NEB SCH ×4 (00:02→18:53)
[2018-06-21 04:20] LABS: Basophils # (auto) 0 uL; Eosinophils # (auto) 0 uL; Hematocrit 25.4 % (41.0-53.0); Hemoglobin 8.6 g/dL (13.5-17.5); Lymphocytes # (auto) 0.7 uL; Lymphocytes % (auto) 8.9 % (10.0-50.0); Mean Corpuscular Hemoglobin 32.6 pg (28.0-32.0); Mean Corpuscular Hgb Conc. 33.7 g/dL (32.0-36.0); Mean Corpuscular Volume 96.8 fL (80.0-100.0); Monocytes # (auto) 0.5 uL; Monocytes % (auto) 6.1 % (0.0-12.0); Neutrophils # (auto) 6.9 uL; Nucleated Red Blood Cells % 0.2 %; Platelet Count (auto) 114 10^3/uL (140-450); Red Blood Cells 2.62 10^6/uL (4.5-5.90); Red Cell Distribution Width 14.6 % (11.8-14.3); White Blood Cell 8.1 10^3/uL (4.4-10.8)
[2018-06-21 04:35] LABS: Albumin 2.9 g/dL (3.4-5.0); Calcium 8.2 mg/dL (8.5-10.1); Magnesium 2.5 mg/dL (1.6-2.6); Potassium 4.1 mmol/L (3.5-5.1)
[2018-06-21 04:38] LABS: BUN/Creatinine Ratio 25.5
[2018-06-21 04:40] LABS: Bilirubin, Total 0.5 mg/dL (0.2-1.0); Total Protein 6.1 g/dL (6.4-8.2)
[2018-06-21] MEDS: INSULIN LANTUS (GLARGINE) 1 /0.01ml (100units/ml) SC SCH (07:00)
[2018-06-21] MEDS: ACCU-CHEK COMFORT CURVE STRIP VI SCH ×4 (07:00→22:42)
[2018-06-21] MEDS: InsuLIN REG 1unit/0.01ml Soln (100units/ml) SC SCH ×4 (07:06→22:42)
[2018-06-21] MEDS: VANCOMYCIN 1GM/250ML 250 ML IV SCH (07:06)
[2018-06-21] MEDS: SODIUM CHLOR 0.9% PF (SALINE LOCK) 10ML VIAL/SYR IV SCH ×3 (07:06→22:41)
[2018-06-21] MEDS: ENALAPRIL MALEATE 2.5 MG TAB PO SCH ×2 (10:00→22:00)
[2018-06-21] MEDS ORDERED: PANTOPRAZOLE 40 MG TAB PO SCH (10:00)
[2018-06-21] MEDS: CARVEDILOL 3.125 MG TAB PO SCH ×2 (10:00→22:00)
[2018-06-21] MEDS: FUROSEMIDE 40 MG/4 ML VIAL IV SCH (10:52)
[2018-06-21] MEDS: LEVOFLOXACIN 500MG 100 ML IV SCH (10:52)
[2018-06-21] MEDS: ASPirin-EC 81 mg tab PO SCH (10:53)
[2018-06-21] MEDS: MULTIPLE VITAMIN TAB PO SCH (10:53)
[2018-06-21] MEDS: GABAPENTIN 300 MG CAP PO SCH ×2 (10:53→22:41)
[2018-06-21] MEDS: POTASSIUM CHL 10 Meq TABLET PO SCH (10:54)
[2018-06-21] MEDS: SUCRALFATE 1 GM/10 ML ORAL SUSP PO SCH ×2 (11:49→17:03)
[2018-06-21] MEDS ORDERED: ENOXAPARIN SOD 80 MG/0.8ML SYRINGE SC SCH (13:00)
[2018-06-21] MEDS ORDERED: HEPARIN SODIUM (PORCINE) 5000 UNITS/ML 1ML VIAL IV ONE (19:45)
[2018-06-21] MEDS ORDERED: HEPARIN DRIP/D5W 100UNITS/ML 250 ML IV SCH (21:00)
[2018-06-21] MEDS: PANTOPRAZOLE 40 MG TAB PO SCH (22:41)
[2018-06-21] MEDS: ATORVASTATIN 20 MG TAB PO SCH (22:41)
[2018-06-21 22:54] LABS: Basophils # (auto) 0 uL; Eosinophils # (auto) 0 uL; Hematocrit 25.2 % (41.0-53.0); Hemoglobin 8.5 g/dL (13.5-17.5); Lymphocytes # (auto) 0.8 uL; Lymphocytes % (auto) 9.4 % (10.0-50.0); Mean Corpuscular Hemoglobin 32.7 pg (28.0-32.0); Mean Corpuscular Hgb Conc. 33.9 g/dL (32.0-36.0); Mean Corpuscular Volume 96.6 fL (80.0-100.0); Monocytes # (auto) 0.6 uL; Monocytes % (auto) 7.6 % (0.0-12.0); Neutrophils # (auto) 7.1 uL; Nucleated Red Blood Cells % 0.2 %; Platelet Count (auto) 116 10^3/uL (140-450); Red Blood Cells 2.61 10^6/uL (4.5-5.90); Red Cell Distribution Width 14.8 % (11.8-14.3); White Blood Cell 8.5 10^3/uL (4.4-10.8)
[2018-06-21 23:10] LABS: INR 1.05 (0.9-1.15); Partial Thromboplastin Time 26.4 sec (23.78-33.04); Prothrombin Time 11.2 sec (9.27-12.13)
[2018-06-22] VITALS (63 sets, daily range): BP systolic 96–122; BP diastolic 48–68
[2018-06-22] MEDS: IPRATROPIUM BROM 0.5 MG/2.5ML INH SOL NEB SCH ×4 (00:09→19:04)
[2018-06-22] MEDS: ALBUTEROL SULF 2.5 MG/0.5ML(0.5%) NEB SOLN NEB SCH ×4 (00:09→19:04)
[2018-06-22 04:59] LABS: Basophils # (auto) 0 uL; Basophils % (auto) 0.1 % (0.0-2.0); Eosinophils # (auto) 0 uL; Eosinophils % (auto) 0.1 % (0.0-7.0); Hematocrit 25.7 % (41.0-53.0); Hemoglobin 8.7 g/dL (13.5-17.5); Lymphocytes # (auto) 1.1 uL; Lymphocytes % (auto) 14.8 % (10.0-50.0); Mean Corpuscular Hemoglobin 32.9 pg (28.0-32.0); Mean Corpuscular Hgb Conc. 34.1 g/dL (32.0-36.0); Mean Corpuscular Volume 96.5 fL (80.0-100.0); Monocytes # (auto) 0.5 uL; Monocytes % (auto) 7.2 % (0.0-12.0); Neutrophils % (auto) 77.8 % (37.0-80.0); Nucleated Red Blood Cells % 0.1 %; Platelet Count (auto) 115 10^3/uL (140-450); Red Blood Cells 2.66 10^6/uL (4.5-5.90); Red Cell Distribution Width 14.4 % (11.8-14.3); White Blood Cell 7.7 10^3/uL (4.4-10.8)
[2018-06-22 05:14] LABS: BUN/Creatinine Ratio 32.8; Calcium 8.1 mg/dL (8.5-10.1); Potassium 3.9 mmol/L (3.5-5.1)
[2018-06-22 05:16] LABS: INR 1.07 (0.9-1.15); Prothrombin Time 11.4 sec (9.27-12.13)
[2018-06-22 05:23] LABS: Partial Thromboplastin Time 75.2 sec (23.78-33.04)
[2018-06-22] MEDS ORDERED: VANCOMYCIN 1GM/250ML 250 ML IV SCH (06:00)
[2018-06-22] MEDS: SODIUM CHLOR 0.9% PF (SALINE LOCK) 10ML VIAL/SYR IV SCH ×3 (06:12→21:22)
[2018-06-22] MEDS: SUCRALFATE 1 GM/10 ML ORAL SUSP PO SCH ×2 (06:26→17:14)
[2018-06-22] MEDS: INSULIN LANTUS (GLARGINE) 1 /0.01ml (100units/ml) SC SCH (06:26)
[2018-06-22] MEDS: InsuLIN REG 1unit/0.01ml Soln (100units/ml) SC SCH ×4 (06:26→21:22)
[2018-06-22] MEDS: ACCU-CHEK COMFORT CURVE STRIP VI SCH ×4 (06:26→21:22)
[2018-06-22] MEDS: LEVOFLOXACIN 500MG 100 ML IV SCH (10:05)
[2018-06-22] MEDS: MULTIPLE VITAMIN TAB PO SCH (10:12)
[2018-06-22] MEDS: ASPirin-EC 81 mg tab PO SCH (10:12)
[2018-06-22] MEDS: PANTOPRAZOLE 40 MG TAB PO SCH ×2 (10:13→21:22)
[2018-06-22] MEDS: GABAPENTIN 300 MG CAP PO SCH ×2 (10:13→21:21)
[2018-06-22] MEDS: POTASSIUM CHL 10 Meq TABLET PO SCH (10:13)
[2018-06-22] MEDS: FUROSEMIDE 40 MG/4 ML VIAL IV SCH (11:07)
[2018-06-22 11:20] LABS: INR 1.06 (0.9-1.15); Prothrombin Time 11.3 sec (9.27-12.13)
[2018-06-22 11:23] LABS: Partial Thromboplastin Time 78.8 sec (23.78-33.04)
[2018-06-22] MEDS: CARVEDILOL 3.125 MG TAB PO SCH ×2 (12:45→21:11)
[2018-06-22] MEDS: ENALAPRIL MALEATE 2.5 MG TAB PO SCH ×2 (12:45→21:12)
[2018-06-22 16:46] LABS: INR 1.07 (0.9-1.15); Partial Thromboplastin Time 57.1 sec (23.78-33.04); Prothrombin Time 11.4 sec (9.27-12.13)
[2018-06-22] MEDS: FLUCONAZOLE 100 MG TAB PO SCH (17:14)
[2018-06-22] MEDS: ATORVASTATIN 20 MG TAB PO SCH (21:21)
[2018-06-23] MEDS: IPRATROPIUM BROM 0.5 MG/2.5ML INH SOL NEB SCH ×4 (00:43→19:13)
[2018-06-23] MEDS: ALBUTEROL SULF 2.5 MG/0.5ML(0.5%) NEB SOLN NEB SCH ×4 (00:43→19:13)
[2018-06-23 05:22] VITALS: BP 107/65
[2018-06-23] MEDS: InsuLIN REG 1unit/0.01ml Soln (100units/ml) SC SCH ×3 (05:47→17:50)
[2018-06-23] MEDS: ACCU-CHEK COMFORT CURVE STRIP VI SCH ×3 (05:48→17:00)
[2018-06-23] MEDS: INSULIN LANTUS (GLARGINE) 1 /0.01ml (100units/ml) SC SCH (05:55)
[2018-06-23] MEDS: SUCRALFATE 1 GM/10 ML ORAL SUSP PO SCH ×2 (05:55→17:50)
[2018-06-23] MEDS: SODIUM CHLOR 0.9% PF (SALINE LOCK) 10ML VIAL/SYR IV SCH ×2 (05:55→14:00)
[2018-06-23 09:00] VITALS: BP 106/60
[2018-06-23 09:23] VITALS: BP 107/65
[2018-06-23] MEDS: POTASSIUM CHL 10 Meq TABLET PO SCH (09:45)
[2018-06-23] MEDS: GABAPENTIN 300 MG CAP PO SCH (09:45)
[2018-06-23] MEDS: PANTOPRAZOLE 40 MG TAB PO SCH (09:46)
[2018-06-23] MEDS: FLUCONAZOLE 100 MG TAB PO SCH (09:46)
[2018-06-23] MEDS: FUROSEMIDE 40 MG/4 ML VIAL IV SCH (09:47)
[2018-06-23] MEDS: ASPirin-EC 81 mg tab PO SCH (10:00)
[2018-06-23] MEDS: CARVEDILOL 3.125 MG TAB PO SCH (10:00)
[2018-06-23] MEDS: ENALAPRIL MALEATE 2.5 MG TAB PO SCH (10:00)
[2018-06-23] MEDS: MULTIPLE VITAMIN TAB PO SCH (10:00)
[2018-06-23 13:00] VITALS: BP 107/59
[2018-06-23] MEDS ORDERED: PANT40T PO (16:59)
[2018-06-23] MEDS ORDERED: FLUC100T34 PO (16:59)
[2018-06-23 17:00] VITALS: BP 99/56
[2018-06-23 19:02] VITALS: BP 106/60
== END 2018-06-23 19:38 | disposition home or self-care (01) | DRG 280 ==
LOC: ER 03:09 → TELE 03:10 → ICU WEST 14:09 → TELE-WESTW 06-22 15:41
PROVIDERS: ADMIT Internal Medicine; ATTEND Internal Medicine
PROC: 5A09357 Assistance with Respiratory Ventilation, Less than 24 Consecutive Hours, Continuous Positive Airway Pressure (ICD-10-PCS; principal; 2018-06-20)
PROC: 5A09357 Assistance with Respiratory Ventilation, Less than 24 Consecutive Hours, Continuous Positive Airway Pressure (ICD-10-PCS; 2018-06-21)
PROC: 5A09357 Assistance with Respiratory Ventilation, Less than 24 Consecutive Hours, Continuous Positive Airway Pressure (ICD-10-PCS; 2018-06-22)
DX: I21.4 Non-ST elevation (NSTEMI) myocardial infarction (principal); J96.01 Acute respiratory failure with hypoxia; J18.9 Pneumonia, unspecified organism; I50.43 Acute on chronic combined systolic (congestive) and diastolic (congestive) heart failure; E44.1 Mild protein-calorie malnutrition; I13.0 Hypertensive heart and chronic kidney disease with heart failure and stage 1 through stage 4 chronic kidney disease, or unspecified chronic kidney disease; N17.9 Acute kidney failure, unspecified; E11.22 Type 2 diabetes mellitus with diabetic chronic kidney disease; E11.51 Type 2 diabetes mellitus with diabetic peripheral angiopathy without gangrene; I25.10 Atherosclerotic heart disease of native coronary artery without angina pectoris; E78.5 Hyperlipidemia, unspecified; D63.8 Anemia in other chronic diseases classified elsewhere; E11.21 Type 2 diabetes mellitus with diabetic nephropathy; N18.2 Chronic kidney disease, stage 2 (mild); E83.51 Hypocalcemia; I25.5 Ischemic cardiomyopathy; K29.90 Gastroduodenitis, unspecified, without bleeding; E66.9 Obesity, unspecified; I25.2 Old myocardial infarction; Z68.29 Body mass index [BMI] 29.0-29.9, adult; Z82.49 Family history of ischemic heart disease and other diseases of the circulatory system; Z79.82 Long term (current) use of aspirin; Z79.02 Long term (current) use of antithrombotics/antiplatelets; Z83.3 Family history of diabetes mellitus; Z86.73 Personal history of transient ischemic attack (TIA), and cerebral infarction without residual deficits; Z95.1 Presence of aortocoronary bypass graft; Z89.512 Acquired absence of left leg below knee; Z89.511 Acquired absence of right leg below knee; Z88.0 Allergy status to penicillin
CPT/HCPCS: 36415; 71045; 71275; 80048; 80053; 81001; 82962; 83036; 83735; 83880; 84443; 84484; 85014; 85018; 85025; 85379; 85610; 85730; 87040; 87070; 87081; 87086; 87205; 93005; 93306; 93970; 94640; 94660; 94761; 96372; 96374; 96375; J1815; J1956